=== PATIENT | female | born 1955 | race Caucasian/White ===

== ENCOUNTER 2017-05-29 08:00 | Outpatient (CLI) | payer OTHER | END 2017-05-29 08:01 | disposition home or self-care (01) | LOC: BICMAMMO 08:00 | PROVIDERS: ATTEND Internal Medicine | DX: N63.21 Unspecified lump in the left breast, upper outer quadrant (principal) | CPT/HCPCS: G0206-LT; G0279 ==

== ENCOUNTER 2018-05-06 12:35 | Outpatient (CLI) | payer OTHER ==
--- NOTE | 2018-05-06 15:40 | MRI ---
MRI LEFT HAND WITH AND WITHOUT IV CONTRAST: DATE: 05/06/2018. PROVIDED CLINICAL HISTORY: Rheumatoid arthritis. FINDINGS: The dorsal extensor and volar flexor tendons demonstrate an intact MR appearance. There is no regional tenosynovial fluid. No regional joint effusion is evident. Regional marrow and muscular signal appears normal. There is no periarticular bone marrow edema or e vidence for erosive change. There is no significant synovial enhancement evident. IMPRESSION: No evidence for an acute process. POS: [facility]
--- NOTE | 2018-05-06 19:26 | MRI ---
MRI OF RIGHT HAND PERFORMED WITH AND WITHOUT CONTRAST ENHANCEMENT: 05/06/18 HISTORY: Right hand pain. History of rheumatoid arthritis. Carpal tunnel region appears unremarkable. Extensor tendons are normal. No signs of any tenosynovitis type change. There is normal marrow signal change within the carpals, metacarpals and phalanges. The triangular fibrocartilage appears intact. Lunotriquetral and scapholunate ligaments appear intact . No signs of any carpal instability. No synovitis changes. IMPRESSION: Unremarkable MRI of the right hand. No MR features of an inflammatory arthritis. POS: [facility]
== END 2018-05-06 12:36 | disposition home or self-care (01) ==
LOC: SCSMRI 12:35
PROVIDERS: ATTEND Internal Medicine Rheumatology
DX: M13.80 Other specified arthritis, unspecified site (principal)
CPT/HCPCS: 82565